=== PATIENT | female | born 1935 | race Caucasian/White ===

== ENCOUNTER 2017-06-21 05:15 | Observation (INO) | payer OTHER | END 2017-06-22 13:38 | disposition home health service (06) | LOC: TBA 05:15 → 4N 15:42 | DX: S92.011A Displaced fracture of body of right calcaneus, initial encounter for closed fracture (principal); M25.571 Pain in right ankle and joints of right foot; I10 Essential (primary) hypertension; G20 Parkinson's disease; X58.XXXA Exposure to other specified factors, initial encounter; Y93.89 Activity, other specified; Y92.89 Other specified places as the place of occurrence of the external cause; Y99.8 Other external cause status ==